=== PATIENT | female | born 1995 | race American Indian/Alaskan Native ===

== ENCOUNTER 2017-09-23 13:40 | Outpatient (CLI) | payer OTHER ==
[2017-09-23] MEDS ORDERED: PRENATAL TABLE1 EAC2 PO (13:55)
== END 2017-09-24 11:37 | disposition home or self-care (01) ==
LOC: OBS/DEL 13:40
DX: O47.1 False labor at or after 37 completed weeks of gestation (principal)

== ENCOUNTER 2017-10-03 13:40 | Outpatient (CLI) | payer OTHER ==
[~2017-10-03 13:40] MED LIST: PRENATAL TABLE1 EAC2 PO
== END 2017-10-04 12:50 | disposition home or self-care (01) ==
LOC: OBS/DEL 13:40
DX: O47.1 False labor at or after 37 completed weeks of gestation (principal)

== ENCOUNTER 2017-10-07 05:32 | Inpatient (IN) | payer OTHER ==
[~2017-10-07] VITALS: Ht 147.3 cm; Wt 73.5 kg
== END 2017-10-09 14:42 | disposition home or self-care (01) | DRG 775 ==
LOC: LDR 05:32 → OB/GYN 10-08 11:19
PROC: 0HQ9XZZ Repair Perineum Skin, External Approach (ICD-10-PCS; principal; 2017-10-07)
PROC: 10E0XZZ Delivery of Products of Conception, External Approach (ICD-10-PCS; 2017-10-07)
PROC: 4A1HXCZ Monitoring of Products of Conception, Cardiac Rate, External Approach (ICD-10-PCS; 2017-10-07)
PROC: 4A033R1 Measurement of Arterial Saturation, Peripheral, Percutaneous Approach (ICD-10-PCS; 2017-10-07)
DX: O70.0 First degree perineal laceration during delivery (principal); O36.5930 Maternal care for other known or suspected poor fetal growth, third trimester, not applicable or unspecified; O99.820 Streptococcus B carrier state complicating pregnancy; Z3A.39 39 weeks gestation of pregnancy; Z37.0 Single live birth